=== PATIENT | male | born 1970 | race Caucasian/White ===

== ENCOUNTER 2017-03-20 14:12 | Outpatient (RCR) | payer SELFPAY ==
[~2017-03-20 14:12] MED LIST: ALBU8.5H4 IH; DOXY100C42 PO; METH4TAB PO
== END 2017-03-20 15:11 | disposition home or self-care (01) ==
PROVIDERS: ATTEND Nurse Practitioner Family
DX: M48.00 Spinal stenosis, site unspecified (principal); M54.5 Low back pain

== ENCOUNTER 2018-03-14 14:06 | Emergency (ER) | payer MEDICARE, OTHER ==
[~2018-03-14] VITALS: Ht 193 cm; Wt 208.7 kg
--- OUTSIDE RECORDS SUMMARY | 2018-03-14 14:12 | XMS REPORT ---
Author Author CK GORDON Organization [employer] Address Unknown Phone Unavailable Care Team Providers Care Residential Leasing Agent Name Role Phone CK GORDON CP Unavailable Allergies No Known Allergies Problems Problem Type Condition Code Onset Dates Condition Status Problem History of alcohol abuse Z87.898 Active Problem Tobacco abuse Z72.0 Active Problem Tobacco abuse counseling Z71.6 Active Problem Visit for wound care Z51.89 Active Problem Metabolic syndrome E88.81 Active Problem Encounter for wound re-check Z51.89 Active Problem Family history of cancer Z80.9 Active Problem Family history of diabetes mellitus Z83.3 Active Problem Hypercholesteremia E78.0 Active Problem Morbid obesity E66.01 Active Problem COPD (chronic obstructive pulmonary disease) J44.9 Active Problem Depression F32.9 Active Problem Exercise counseling Z71.89 Active Problem Hypertension I10 Active Problem Dietary counseling Z71.3 Active Medications No Known Medications Results No Known Results Summary Purpose [employer]ClinicalWorks Submission
--- OUTSIDE RECORDS SUMMARY | 2018-03-14 14:12 | XMS REPORT ---
Author Author AURA CORONA [facility] e[employer] Address Unknown Phone Unavailable Care Team Providers Care Rn Peritoneal Dialysis Name Role Phone AURA CORONA Unavailable Allergies No Known Allergies Problems Problem Type Condition Code Onset Dates Condition Status Problem Hypertension I10 Active Problem Shortness of breath R06.02 Active Problem COPD (chronic obstructive pulmonary disease) J44.9 Active Medications Medication Code System Code Instructions Start Date End Date Status Dosage Spiriva Respimat [facility] [address]-17 2.5 MCG/ACT Inhalation Once a day Sep 2 puffs Combivent Respimat [facility] [address]-43 20-100 MCG/ACT Inhalation PRN every 4 hours 1 puff Results No Known Results Summary Purpose eClinicalWorks Submission
--- OUTSIDE RECORDS SUMMARY | 2018-03-14 14:12 | XMS REPORT ---
Author Author CK GORDON Organization [facility] Address [address] [place] [address] Care Team Providers Care Land Commissioner Name Role Phone CK GORDON Unavailable PROBLEMS Type Condition ICD9-CM Code [id number] Code Onset Dates Condition Status SNOMED Code Problem Tobacco abuse counseling Z71.6 Active 346276299 Problem Family history of diabetes mellitus Z83.3 Active 397838244 Problem Tobacco abuse Z72.0 Active 36071131 Problem Encounter for wound re-check Z51.89 Active 993386097 Problem Visit for wound care Z51.89 Active 524087477 Problem Morbid obesity E66.01 Active 514915459 Problem Family history of cancer Z80.9 Active 841146328 Problem Metabolic syndrome E88.81 Active 70402777 Problem Hypercholesteremia E78.0 Active 48970336 Assessment Encounter for wound re-check Z51.89 05 Apr, 2016 Active 049913404 Problem Depression F32.9 Active 84355585 Problem Exercise counseling Z71.89 Active 351327961 Problem Hypertension I10 Active 34566121 Problem Dietary counseling Z71.3 Active 095158334 Problem COPD (chronic obstructive pulmonary disease) J44.9 Active 35674758 Problem History of alcohol abuse Z87.898 Active 455892844 ALLERGIES Substance Reaction Event Type Date Status N.K.D.A. Unknown Non Drug Allergy Apr, Unknown SOCIAL HISTORY No smoking Hx information available PLAN OF CARE VITAL SIGNS Height 76 in 2016-04-24 Weight 482.6 lbs 2016-04-24 Heart Rate 92 bpm 2016-04-24 Respiratory Rate 22 2016-04-24 BMI 58.74 kg/m2 2016-04-24 Blood pressure systolic 134 mmHg 2016-04-24 Blood pressure diastolic 84 mmHg 2016-04-24 MEDICATIONS Medication Instructions Dosage Frequency Start Date End Date Duration Status BuPROPion HCl (XL) 150 MG Orally Once a day 1 tablet in the morning 24h 30 Active ibuprofen 1 tab Active Tylenol 325 MG Orally every 6 hrs 3 tablets as needed 6h Active Symbicort 80-4.5 MCG/ACT Inhalation Twice a day 2 puffs 12h 25 Nov, 2015 Active Simvastatin 10 mg Orally Once a day 1 tablet in the evening 24h Dec, Active MetFORMIN HCl ER 500 MG Orally 2 times a day 1 tablet with evening meal for 1 week then one tab with meals twice daily 12h Dec, Active Lisinopril 40 mg Orally Once a day 1 tablet 24h Sep, Active Amlodipine Besylate 5 MG Orally Once a day 1 tablet 24h 30 Active Oxygen 2 L/NC Active ProAir HFA 108(90 Base) MCG/ACT INHALE TWO PUFFS BY MOUTH EVERY 4 HOURS NEEDED 17 Active Clindamycin HCl 300 MG Orally every 8 hrs 1 capsule 8h Apr,Apr 10 days Active RESULTS No Results PROCEDURES Procedure Date Ordered Related Diagnosis Body Site Office Visit, Est Pt., Level 2 April 24, 2016 IMMUNIZATIONS No Known Immunizations
--- OUTSIDE RECORDS SUMMARY | 2018-03-14 14:12 | XMS REPORT ---
Author Author AURA CORONA [facility] eClinicalWorks Address Unknown Phone Unavailable Care Team Providers Care Career Technical Supervisor Name Role Phone AURA CORONA CP Unavailable Allergies No Known Allergies Problems Problem Type Condition Code Onset Dates Condition Status Problem Routine adult health maintenance V70.0 Active Problem Elevated blood pressure reading without diagnosis of hypertension 796.2 Active Problem Shortness of breath R06.02 Active Problem Shortness of breath on exertion 786.05 Active Assessment Shortness of breath R06.02 Active Medications No Known Medications Procedures Procedure Coding System Code Date SPIROMETRY CPT-4 18812 Sep 14, 2015 NEB/MDI DEMO CPT-4 42515 Sep 14, 2015 RESPIRATORY FLOW VOLUME LOOP CPT-4 24649 Sep 14, 2015 SPRIOMETRY CHALLENGE CPT-4 95893 Sep 14, 2015 Results Name Result Date Reference Range Unit Abnormality Flag PULMONARY EDUCATION (IN-HOUSE) RESPIRATORY FLOW VOLUME LOOP (IN-HOUSE) BRONCHODILATION PRE/POST (IN-HOUSE) Summary Purpose eClinicalWorks Submission
--- OUTSIDE RECORDS SUMMARY | 2018-03-14 14:12 | XMS REPORT ---
Author Author HEIDIPRIYANKACK Organization [facility] Address [address] [place] [address] Care Team Providers Care Superintendent Meters Name Role Phone GORDONPRIYANKA AllenELE Unavailable PROBLEMS Type Condition ICD9-CM Code [id number] Code Onset Dates Condition Status SNOMED Code Problem Dietary counseling Z71.3 Active 625987520 Problem Tobacco abuse Z72.0 Active 74985130 Problem Morbid obesity E66.01 Active 472454841 Problem Back pain of lumbosacaral region with sciatica M54.40 Active 977677987 Problem Visit for wound care Z51.89 Active 404557757 Problem Metabolic syndrome E88.81 Active 42505273 Problem Tobacco abuse counseling Z71.6 Active 237630502 Problem Encounter for wound re-check Z51.89 Active 786181424 Problem Hypercholesteremia E78.0 Active 03147001 Problem Elevated TSH R94.6 Active 901975315 Problem Central stenosis of spinal canal M48.00 Active 84217438 Problem COPD (chronic obstructive pulmonary disease) J44.9 Active 61032351 Problem Depression F32.9 Active 06344872 Problem 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 Active 529394421446 Problem History of alcohol abuse Z87.898 Active 797794915 Problem Hypertension I10 Active 69638554 Problem Exercise counseling Z71.89 Active 473651418 ALLERGIES No Information SOCIAL HISTORY Never Assessed PLAN OF CARE VITAL SIGNS MEDICATIONS Medication Instructions Dosage Frequency Start Date End Date Duration Status Symbicort 80-4.5 MCG/ACT Inhalation Twice a day 2 puffs 12h 25 Nov, 2015 90 days Active RESULTS No Results PROCEDURES No Known procedures IMMUNIZATIONS No Known Immunizations MEDICAL (GENERAL) HISTORY Type Description Date Medical History alcoholism Medical History COPD Medical History Hypertension Medical History Depression Medical History 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
--- OUTSIDE RECORDS SUMMARY | 2018-03-14 14:12 | XMS REPORT ---
Author Author CK GORDON Organization [facility] Address [address] [place] [address] Care Team Providers Care Commercial Artist Lettering Name Role Phone CK GORDON Unavailable PROBLEMS Type Condition ICD9-CM Code [id number] Code Onset Dates Condition Status SNOMED Code Problem Dietary counseling Z71.3 Active 873979843 Problem Tobacco abuse Z72.0 Active 37309411 Problem Morbid obesity E66.01 Active 526663943 Problem Back pain of lumbosacaral region with sciatica M54.40 Active 209058770 Problem Visit for wound care Z51.89 Active 576941348 Problem Metabolic syndrome E88.81 Active 88829914 Problem Tobacco abuse counseling Z71.6 Active 715689826 Problem Encounter for wound re-check Z51.89 Active 954396582 Problem Hypercholesteremia E78.0 Active 67033238 Problem Elevated TSH R94.6 Active 406060591 Problem Central stenosis of spinal canal M48.00 Active 37841607 Problem COPD (chronic obstructive pulmonary disease) J44.9 Active 00959676 Problem Depression F32.9 Active 68754669 Problem 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 Active 917190248200 Problem History of alcohol abuse Z87.898 Active 008220463 Problem Hypertension I10 Active 13487350 Problem Exercise counseling Z71.89 Active 725515270 ALLERGIES No Information SOCIAL HISTORY Never Assessed PLAN OF CARE VITAL SIGNS MEDICATIONS Medication Instructions Dosage Frequency Start Date End Date Duration Status ProAir HFA 108(90 Base) MCG/ACT Inhalation every 4 hrs INHALE TWO PUFFS BY MOUTH EVERY 4 HOURS NEEDED 4h 90 days Active Spiriva Respimat 2.5 MCG/ACT Inhalation Once a day 2 puffs 24h Sep, 90 days Active RESULTS No Results PROCEDURES No Known procedures IMMUNIZATIONS No Known Immunizations MEDICAL (GENERAL) HISTORY Type Description Date Medical History alcoholism Medical History COPD Medical History Hypertension Medical History Depression Medical History 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
--- OUTSIDE RECORDS SUMMARY | 2018-03-14 14:12 | XMS REPORT ---
Author Author AURA CORONA [facility] eClinicalWorks Address Unknown Phone Unavailable Care Team Providers Care Caregivers Non Medical Name Role Phone AURA CORONA CP Unavailable Allergies, Adverse Reactions, Alerts Substance Reaction Event Type N.K.D.A. Info Not Available Non Drug Allergy Problems Problem Type Condition ICD-9 Code Onset Dates Condition Status Problem Shortness of breath on exertion 786.05 Active Assessment Elevated blood pressure reading without diagnosis of hypertension 796.2 Active Problem Elevated blood pressure reading without diagnosis of hypertension 796.2 Active Assessment Shortness of breath on exertion 786.05 Active Medications Medication Code System Code Instructions Start Date End Date Status Dosage Pulmicort Flexhaler [facility] 86699-2018-12 90 MCG/ACT Inhalation Twice a day Jun 10, 2015 1 puff ProAir HFA [facility] [address]-96 108 (90 Base) MCG/ACT Inhalation every 4 hrs Jun 02, 2015 2 puffs as needed Albuterol Sulfate [facility] [address]-31 108 (90 Base) MCG/ACT Inhalation every 4 hrs Jun 10, 2015 1 puff as needed Procedures Procedure Coding System Code Date Office Visit, New Pt., Level 4 CPT-4 89157 Jun 10, 2015 Vital Signs Date/Time: Jun 10, 2015 Temperature 98.7 F Weight 469.7 lbs Height 76 in BMI 57.17 Index Blood Pressure Diastolic 100 mmHg Blood Pressure Systolic 162 mmHg Cardiac Monitoring Heart Rate 90 bpm Results No Known Results Summary Purpose eClinicalWorks Submission
--- OUTSIDE RECORDS SUMMARY | 2018-03-14 14:12 | XMS REPORT ---
Author Author AURA CORONA [facility] eClinicalWorks Address Unknown Phone Unavailable Care Team Providers Care Hand Booked Folder And Stitcher Name Role Phone AURA CORONA CP Unavailable Allergies, Adverse Reactions, Alerts Substance Reaction Event Type N.K.D.A. Info Not Available Non Drug Allergy Problems Problem Type Condition Code Onset Dates Condition Status Problem COPD (chronic obstructive pulmonary disease) J44.9 Active Problem Hypertension I10 Active Problem Depression F32.9 Active Assessment COPD (chronic obstructive pulmonary disease) J44.9 Active Assessment Depression F32.9 Active Problem Shortness of breath R06.02 Active Assessment Hypertension I10 Active Medications Medication Code System Code Instructions Start Date End Date Status Dosage Spiriva Respimat [facility] [address]-59 2.5 MCG/ACT Inhalation Once a day Sep [address] [facility] [address]-10 40 MG Orally Once a day Oct 03, [address] [facility] [address]-96 80-4.5 MCG/ACT Inhalation Twice a day Jul 11, 2015 Oct 09, [address] [facility] [address]-11 10 MG Orally Once a day Oct 03, [address] [facility] [address]-27 20 MG Orally Once a day Oct 03, 2015 Oct 08, 2015 2 tabs Albuterol Sulfate [facility] [address]-48 108 (90 Base) MCG/ACT Inhalation every 4 hrs Jun 10, 2015 1 puff as needed Procedures Procedure Coding System Code Date Office Visit, Est Pt., Level 3 CPT-4 59794 Oct 03, 2015 Vital Signs Date/Time: Oct 03, 2015 Temperature 98.2 F Weight 488.4 lbs Height 76 in BMI 59.44 Index Blood Pressure Diastolic 100 mmHg Blood Pressure Systolic 162 mmHg Cardiac Monitoring Heart Rate 88 bpm Results No Known Results Summary Purpose eClinicalWorks Submission
--- OUTSIDE RECORDS SUMMARY | 2018-03-14 14:13 | XMS REPORT ---
Author Author KILEY NEWELL [facility] Address [address] [place] [address] Care Team Providers Care Investigative Reporter Name Role Phone KILEY NEWELL Unavailable PROBLEMS Type Condition ICD9-CM Code WOD25-AT Code Onset Dates Condition Status SNOMED Code Problem Tobacco abuse Z72.0 Active 91226935 Problem Family history of cancer Z80.9 Active 670135472 Problem Family history of diabetes mellitus Z83.3 Active 508956191 Problem Back pain of lumbosacaral region with sciatica M54.40 Active 977351238 Problem Encounter for wound re-check Z51.89 Active 442891454 Problem Hypercholesteremia E78.0 Active 57609697 Problem Morbid obesity E66.01 Active 589737594 Problem Visit for wound care Z51.89 Active 026548125 Problem Metabolic syndrome E88.81 Active 45090420 Assessment Impingement syndrome, shoulder, left M75.42 22 Jun, 2016 Active 154938478 Problem Hypertension I10 Active 88205773 Problem Exercise counseling Z71.89 Active 590412980 Problem Dietary counseling Z71.3 Active 630042393 Problem COPD (chronic obstructive pulmonary disease) J44.9 Active 74883504 Problem History of alcohol abuse Z87.898 Active 082848512 Problem Depression F32.9 Active 40757664 Problem Tobacco abuse counseling Z71.6 Active 592627604 ALLERGIES Unknown Allergies SOCIAL HISTORY No smoking Hx information available PLAN OF CARE VITAL SIGNS Height 76 in 2016-07-12 Blood pressure systolic 130 mmHg 2016-07-12 Blood pressure diastolic 60 mmHg 2016-07-12 MEDICATIONS Unknown Medications RESULTS No Results PROCEDURES Procedure Date Ordered Related Diagnosis Body Site DRAIN/INJECT, JOINT/BURSA Jul 12, 2016 Office Visit, Est Pt., Level 3 Jul 12, 2016 DEPO MEDROL 80 MG/ML Jul 12, 2016 IMMUNIZATIONS No Known Immunizations
--- OUTSIDE RECORDS SUMMARY | 2018-03-14 14:13 | XMS REPORT ---
Author Author CK GORDON [facility] eClinicalWorks Address Unknown Phone Unavailable Care Team Providers Care Relationship Executive Name Role Phone CK GORDON CP Unavailable Allergies, Adverse Reactions, Alerts Substance Reaction Event Type N.K.D.A. Info Not Available Non Drug Allergy Problems Problem Type Condition Code Onset Dates Condition Status Problem Tobacco abuse counseling Z71.6 Active Problem Family history of diabetes mellitus Z83.3 Active Problem Tobacco abuse Z72.0 Active Problem Encounter for wound re-check Z51.89 Active Problem Visit for wound care Z51.89 Active Problem Back pain of lumbosacaral region with sciatica M54.40 Active Problem Morbid obesity E66.01 Active Problem Family history of cancer Z80.9 Active Problem Metabolic syndrome E88.81 Active Problem Hypercholesteremia E78.0 Active Assessment Back pain of lumbosacaral region with sciatica M54.40 Active Assessment Morbid obesity E66.01 Active Problem Depression F32.9 Active Problem Exercise counseling Z71.89 Active Problem Hypertension I10 Active Problem Dietary counseling Z71.3 Active Problem COPD (chronic obstructive pulmonary disease) J44.9 Active Problem History of alcohol abuse Z87.898 Active Medications Medication Code System Code Instructions Start Date End Date Status Dosage ibuprofen [facility] [address]-05 Oral 1 tab Tylenol [facility] [address]-85 325 MG Orally every 6 hrs 3 tablets as needed Lisinopril [facility] [address]-16 40 mg Orally Once a day Oct 03, 2015 1 tablet ProAir HFA [facility] [id number] 108(90 Base) MCG/ACT INHALE TWO PUFFS BY MOUTH EVERY 4 HOURS NEEDED Simvastatin [facility] [address]-09 10 mg Orally Once a day December 26, 2015 1 tablet in the evening Oxygen NDC 0 2 L/NC not defined Amlodipine Besylate [facility] [address]-91 5 mg Orally Once a day 1 tablet BuPROPion HCl (XL) [facility] [id number] 150 MG Orally Once a day 1 tablet in the morning Symbicort [facility] [address]-64 80-4.5 MCG/ACT Inhalation Twice a day Dec 15, 2015 2 puffs MetFORMIN HCl ER [facility] [address]-88 500 MG Orally 2 times a day December 26, 2015 1 tablet with evening meal for 1 week then one tab with meals twice daily Procedures Procedure Coding System Code Date Office Visit, Est Pt., Level 3 CPT-4 15289 Aug 30, 2016 Vital Signs Date/Time: Aug 30, 2016 Cardiac Monitoring Heart Rate 98 bpm Weight 469.0 lbs Height 76 in BMI 57.08 Index Blood Pressure Diastolic 74 mmHg Blood Pressure Systolic 144 mmHg Results No Known Results Summary Purpose eClinicalWorks Submission
--- OUTSIDE RECORDS SUMMARY | 2018-03-14 14:13 | XMS REPORT ---
Author Author HEIDI CK Organization [facility] Address [address] [place] [address] Care Team Providers Care Factory Helper Name Role Phone GORDONPRIYANKA AllenELE Unavailable PROBLEMS Type Condition ICD9-CM Code PRM49-MI Code Onset Dates Condition Status SNOMED Code Problem Depression F32.9 Active 06110863 Problem Dietary counseling Z71.3 Active 962281100 Problem Exercise counseling Z71.89 Active 143791963 Problem Back pain of lumbosacaral region with sciatica M54.40 Active 776947867 Problem Hypercholesteremia E78.0 Active 89002049 Problem Tobacco abuse Z72.0 Active 61952891 Problem Morbid obesity E66.01 Active 643698871 Problem Metabolic syndrome E88.81 Active 26903279 Problem Tobacco abuse counseling Z71.6 Active 044537094 Problem Central stenosis of spinal canal M48.00 Active 54390291 Problem Chronic kidney disease (CKD) stage G3a/A1, moderately decreased glomerular filtration rate (GFR) between 45-59 mL/min/1.73 square meter and albuminuria creatinine ratio less than 30 mg/g N18.3 Active 381585006 Problem 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 Active 666384549908 Problem Abnormal CBC R79.89 Active 626368063 Problem Hypertension I10 Active 04477899 Problem Elevated TSH R94.6 Active 422136798 Problem COPD (chronic obstructive pulmonary disease) J44.9 Active 13988237 ALLERGIES No Known Allergies ENCOUNTERS Encounter Location Date Diagnosis [facility] [address] [facility] [id number] [address] February, [facility] [address] [id number] [address] Dec, Acute nasopharyngitis J00 ; BMI 50.0-59.9, adult Z68.43 and Sore throat J02.9 [facility] [id number] [place] [address] Nov, COPD (chronic obstructive pulmonary disease) J44.9 [place] [address] [address] Nov, Abnormal complete blood count R79.89 [place] [address] [address] Oct, COPD (chronic obstructive pulmonary disease) J44.9 ; Hypertension I10 ; Hypercholesteremia E78.0 and Tobacco abuse counseling Z71.6 [place] [address] [address] Oct, COPD (chronic obstructive pulmonary disease) J44.9 ; Hypertension I10 ; Morbid obesity E66.01 ; Metabolic syndrome E88.81 ; Hypercholesteremia E78.0 ; Central stenosis of spinal canal M48.00 ; 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 ; Tobacco abuse Z72.0 ; Tobacco abuse counseling Z71.6 ; Depression F32.9 ; Dietary counseling Z71.3 ; Exercise counseling Z71.89 and Encounter for immunization Z23 [place] [address] [address] Oct, COPD (chronic obstructive pulmonary disease) J44.9 [place] [address] [address] Jul, Hypertension I10 ; 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 ; COPD (chronic obstructive pulmonary disease) J44.9 ; Elevated serum creatinine R79.89 ; Acute serous otitis media of left ear, recurrence not specified H65.02 ; Acute otitis externa of left ear, unspecified type H60.502 and Dizziness R42 [place] [address] [address] May, Back pain of lumbosacaral region with sciatica M54.40 ; Central stenosis of spinal canal M48.00 and Morbid obesity E66.01 [place] [address] [address] Mar, Hypertension I10 [place] [id number] [place] [address] Mar, Metabolic syndrome E88.81 ; Hypertension I10 ; COPD ( chronic obstructive pulmonary disease) J44.9 ; Morbid obesity E66.01 ; Depression F32.9 ; Dietary counseling Z71.3 ; Exercise counseling Z71.89 ; Tobacco abuse Z72.0 ; Tobacco abuse counseling Z71.6 ; Hypercholesteremia E78.0 and Central stenosis of spinal canal M48.00 [place] [address] [address] February, [place] [address] [address] Jan, Abnormal thyroid stimulating hormone (TSH) level R79.89 [place] [address] [address] Dec, Morbid obesity E66.01 ; Metabolic syndrome E88.81 ; COPD ( chronic obstructive pulmonary disease) J44.9 ; Hypercholesteremia E78.0 ; Back pain of lumbosacaral region with sciatica M54.40 and Hypertension I10 [place] [id number] [place] [address] Dec, Spinal stenosis, site unspecified M48.00 [place] [id number] [place] [address] Dec, Hypertension I10 ; Metabolic syndrome E88.81 and Hypercholesteremia E78.0 [place] [id number] [place] [address] Dec, Hypertension I10 ; Metabolic syndrome E88.81 and Hypercholesteremia E78.0 [place] [address] [address] Dec, Back pain of lumbosacaral region with sciatica M54.40 [place] [address] [address] Nov, COPD (chronic obstructive pulmonary disease) J44.9 [facility] [id number] [place] [address] Nov, [facility] [address] [address] Nov, COPD (chronic obstructive pulmonary disease) J44.9 [facility] [address] [address] Nov, Hypertension I10 ; COPD (chronic obstructive pulmonary disease) J44.9 ; Depression F32.9 ; Morbid obesity E66.01 ; Metabolic syndrome E88.81 and Hypercholesteremia E78.0 [place] [address] [address] Nov, Impingement syndrome, shoulder, left M75.42 [place] [address] [address] Aug, Back pain of lumbosacaral region with sciatica M54.40 [place] [address] [address] Aug, Impingement syndrome, shoulder, left M75.42 [place] [id number] [place] [address] Aug, Morbid obesity E66.01 and Back pain of lumbosacaral region with sciatica M54.40 [place] [id number] [place] [address] Jun, Impingement syndrome, shoulder, left M75.42 [place] [id number] [place] [address] May, [place] [address] [address] May, [place] [id number] [place] [address] May, Impingement syndrome, shoulder, left M75.42 [place] [id number] [place] [address] Apr, Morbid obesity E66.01 ; Back pain of lumbosacaral region with sciatica M54.40 and On home oxygen therapy Z99.81 [place] [address] [address] Apr, [place] [address] [address] Apr, Encounter for wound re-check Z51.89 and Visit for wound care Z51.89 [facility] [address] [address] Apr, Dressing change or removal, nonsurgical wound Z48.00 [place] [address] [address] Apr, Abscess L02.91 and Acute left-sided low back pain with left- sided sciatica M54.42 [place] [address] [address] Mar, Morbid obesity E66.01 and Acute pain of left shoulder M25.512 [place] [address] [address] February, Acute pain of left shoulder M25.512 [place] [address] [address] Jan, Depression F32.9 ; Morbid obesity E66.01 ; Metabolic syndrome E88.81 and Hypercholesteremia E78.0 [place] [address] [address] Dec, Hypertension I10 ; Morbid obesity E66.01 ; Family history of diabetes mellitus Z83.3 ; History of alcohol abuse Z87.898 and Tobacco abuse Z72.0 [place] [address] [address] Dec, [facility] [id number] [place] [address] Dec, Morbid obesity E66.01 ; Hypertension I10 ; Family history of cancer Z80.9 and Family history of diabetes mellitus Z83.3 [place] [id number] [place] [address] Nov, Morbid obesity E66.01 ; COPD (chronic obstructive pulmonary disease) J44.9 ; Hypertension I10 ; Depression F32.9 ; Family history of cancer Z80.9 ; Family history of diabetes mellitus Z83.3 ; Tobacco abuse Z72.0 ; Tobacco abuse counseling Z71.6 ; History of alcohol abuse Z87.898 ; Dietary counseling Z71.3 and Exercise counseling Z71.89 [place] [id number] [place] [address] Sep, Hypertension I10 ; COPD (chronic obstructive pulmonary disease) J44.9 and Depression F32.9 [place] [id number] [place] [address] Sep, [place] [address] [address] Sep, COPD (chronic obstructive pulmonary disease) J44.9 and Hypertension I10 [place] [id number] [place] [address] Aug, Shortness of breath R06.02 [place] [id number] [place] [address] Aug, [place] [id number] [place] [address] Aug, [place] [id number] [place] [address] Jul, [place] [id number] [place] [address] Jul, [place] [address] [address] Jun, Routine adult health maintenance V70.0 and Shortness of breath on exertion 786.05 [facility] [address] [facility] [id number] [address] May, Elevated blood pressure reading without diagnosis of hypertension 796.2 and Shortness of breath on exertion 786.05 IMMUNIZATIONS No Known Immunizations SOCIAL HISTORY Never Assessed REASON FOR VISIT increasing left leg numbness x1 week ago saturday and is numb all the time, pt. states getting ready for bed . drank some milk and took his meds. went to sit down and had a sharp pain that shot straight through his abdomen. , pt. states the abdominal pain is the worst when he reaches for something or tries to sit, pt. states has not had a good bowel movement in a week----LILIANA Giraldo PLAN OF CARE Activity Details Follow Up 3 Months, prn Reason: VITAL SIGNS Height 76 in 2017-05-21 Weight 475.6 lbs 2017-05-21 Temperature 97.8 degrees Fahrenheit 2017-05-21 Heart Rate 90 bpm 2017-05-21 Respiratory Rate 22 2017-05-21 BMI 57.89 kg/m2 2017-05-21 Blood pressure systolic 148 mmHg 2017-05-21 Blood pressure diastolic 85 mmHg 2017-05-21 MEDICATIONS Medication Instructions Dosage Frequency Start Date End Date Duration Status ProAir HFA 108(90 Base) MCG/ACT Inhalation every 4 hrs INHALE TWO PUFFS BY MOUTH EVERY 4 HOURS NEEDED 4h Active Lisinopril 40 mg Orally Once a day 1 tablet 24h 30 days Active Oxygen 2 L/NC Active Spiriva Respimat 2.5 MCG/ACT Inhalation Once a day 2 puffs 24h Sep, Active Symbicort 80-4.5 MCG/ACT Inhalation Twice a day 2 puffs 12h Nov, Active Tylenol 325 MG Orally every 6 hrs 3 tablets as needed 6h Active Amlodipine Besylate 5 mg Orally Once a day 1 tablet 24h 30 days Active Singulair 10 mg Orally Once a day 1 tablet in the evening 24h Mar, 90 days Active BuPROPion HCl ER (XL) 150 MG Orally Once a day TAKE ONE TABLET BY MOUTH IN THE MORNING 24h 90 days Active Simvastatin 20 mg Orally Once a day 1 tablet in the evening 24h Nov, 90 days Active ibuprofen 1 tab Active Albuterol Sulfate (2.5 MG/3ML) 0.083% Inhalation 2 times a day 3 ml 12h Active MetFORMIN HCl ER 500 mg Orally 2 times a day 1 tablet with evening meal for 1 week then one tab with meals twice daily 12h Dec, 90 days Active Simvastatin 10 MG TAKE ONE TABLET BY MOUTH IN THE EVENING Active RESULTS No Results PROCEDURES No Known procedures INSTRUCTIONS MEDICATIONS ADMINISTERED No Known Medications MEDICAL (GENERAL) HISTORY Type Description Date Medical History alcoholism Medical History COPD Medical History Hypertension Medical History Depression Medical History 1.47 cm left posterior basal lung mass- Medical History History of alcohol abuse Surgical History gastric bypass 2000 Surgical History abdominal hernia repair Hospitalization History past surgery
--- OUTSIDE RECORDS SUMMARY | 2018-03-14 14:13 | XMS REPORT ---
Author Author AURA CORONA [facility] eClinicalWorks Address Unknown Phone Unavailable Care Team Providers Care Naval Science Teacher Name Role Phone AURA CORONA CP Unavailable Allergies No Known Allergies Problems Problem Type Condition Code Onset Dates Condition Status Problem Elevated blood pressure reading without diagnosis of hypertension 796.2 Active Problem Shortness of breath on exertion 786.05 Active Problem Routine adult health maintenance V70.0 Active Medications No Known Medications Results No Known Results Summary Purpose eClinicalWorks Submission
--- OUTSIDE RECORDS SUMMARY | 2018-03-14 14:13 | XMS REPORT ---
Author Author AURA CORONA [facility] eClinicalWorks Address Unknown Phone Unavailable Care Team Providers Care Finance Admin Name Role Phone AURA CORONA CP Unavailable Allergies, Adverse Reactions, Alerts Substance Reaction Event Type N.K.D.A. Info Not Available Non Drug Allergy Problems Problem Type Condition Code Onset Dates Condition Status Problem Hypertension I10 Active Problem Shortness of breath R06.02 Active Problem COPD (chronic obstructive pulmonary disease) J44.9 Active Assessment COPD (chronic obstructive pulmonary disease) J44.9 Active Assessment Hypertension I10 Active Medications Medication Code System Code Instructions Start Date End Date Status Dosage Albuterol Sulfate [facility] [id number] 108 (90 Base) MCG/ACT Inhalation every 4 hrs Jun 10, 2015 1 puff as needed Symbicort [facility] [id number] 80-4.5 MCG/ACT Inhalation Twice a day Jul 11, 2015 Oct 09, 2015 2 puffs Spiriva Respimat [facility] [id number] 2.5 MCG/ACT Inhalation Once a day Sep [address] [facility] [id number] 20 MG Orally Once a day Sep 22, 2015 1 tablet Procedures Procedure Coding System Code Date Office Visit, Est Pt., Level 3 CPT-4 68094 Sep 22, 2015 Vital Signs Date/Time: Sep 22, 2015 Temperature 98.6 F Weight 487.1 lbs Height 76 in BMI 59.29 Index Blood Pressure Diastolic 103 mmHg Blood Pressure Systolic 191 mmHg Cardiac Monitoring Heart Rate 89 bpm Results No Known Results Summary Purpose eClinicalWorks Submission
--- OUTSIDE RECORDS SUMMARY | 2018-03-14 14:13 | XMS REPORT ---
Author Author CK GORDON Organization [facility] Address [address] [place] [address] Care Team Providers Care Radioactivity Technician Name Role Phone CK GORDON Unavailable PROBLEMS Type Condition ICD9-CM Code [id number] Code Onset Dates Condition Status SNOMED Code Problem Dietary counseling Z71.3 Active 801702818 Problem Tobacco abuse Z72.0 Active 29912842 Problem Morbid obesity E66.01 Active 325078042 Problem Back pain of lumbosacaral region with sciatica M54.40 Active 980905612 Problem Visit for wound care Z51.89 Active 543612271 Problem Metabolic syndrome E88.81 Active 71084122 Problem Tobacco abuse counseling Z71.6 Active 610708298 Problem Encounter for wound re-check Z51.89 Active 808392140 Problem Hypercholesteremia E78.0 Active 90302348 Problem Elevated TSH R94.6 Active 076132581 Problem Central stenosis of spinal canal M48.00 Active 75736139 Problem COPD (chronic obstructive pulmonary disease) J44.9 Active 30364536 Problem Depression F32.9 Active 00994889 Problem 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 Active 202215714943 Problem History of alcohol abuse Z87.898 Active 306538388 Problem Hypertension I10 Active 89016265 Problem Exercise counseling Z71.89 Active 623577419 ALLERGIES No Information SOCIAL HISTORY Never Assessed PLAN OF CARE VITAL SIGNS MEDICATIONS No Known Medications RESULTS No Results PROCEDURES No Known procedures IMMUNIZATIONS No Known Immunizations MEDICAL (GENERAL) HISTORY Type Description Date Medical History alcoholism Medical History COPD Medical History Hypertension Medical History Depression Medical History 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
--- OUTSIDE RECORDS SUMMARY | 2018-03-14 14:13 | XMS REPORT ---
Author Author CK GORDON Organization [facility] Address [address] [place] [address] Care Team Providers Care Punch Machine Operator Name Role Phone CK GORDON Unavailable PROBLEMS Type Condition ICD9-CM Code [id number] Code Onset Dates Condition Status SNOMED Code Problem Dietary counseling Z71.3 Active 508950969 Problem Tobacco abuse Z72.0 Active 86950270 Problem Morbid obesity E66.01 Active 287143759 Problem Back pain of lumbosacaral region with sciatica M54.40 Active 646496951 Problem Visit for wound care Z51.89 Active 741447181 Problem Metabolic syndrome E88.81 Active 38891340 Problem Tobacco abuse counseling Z71.6 Active 821774760 Problem Encounter for wound re-check Z51.89 Active 549625992 Problem Hypercholesteremia E78.0 Active 83026338 Problem Elevated TSH R94.6 Active 302215390 Problem Central stenosis of spinal canal M48.00 Active 60356857 Problem COPD (chronic obstructive pulmonary disease) J44.9 Active 27006776 Problem Depression F32.9 Active 62231699 Problem 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 Active 631906769341 Problem History of alcohol abuse Z87.898 Active 096579536 Problem Hypertension I10 Active 10525719 Problem Exercise counseling Z71.89 Active 577783239 ALLERGIES No Known Allergies SOCIAL HISTORY Never Assessed PLAN OF CARE Activity Details Follow Up 4 Weeks Reason:weight management VITAL SIGNS Height 76 in 2016-12-11 Weight 468.4 lbs 2016-12-11 Temperature 98.1 degrees Fahrenheit 2016-12-11 Heart Rate 92 bpm 2016-12-11 Respiratory Rate 24 2016-12-11 BMI 57.01 kg/m2 2016-12-11 Blood pressure systolic 146 mmHg 2016-12-11 Blood pressure diastolic 82 mmHg 2016-12-11 MEDICATIONS Medication Instructions Dosage Frequency Start Date End Date Duration Status Tylenol 325 MG Orally every 6 hrs 3 tablets as needed 6h Active Contrave 8-90 MG Orally Twice a day 1 tab each pm x 1 wk, then 1 tab each am and pm x 1 wk, then 2 tabs in pm and 1 tab in am x 1 wk, then 2 tabs bid 12h Nov, Dec, 30 day(s) Active ibuprofen 1 tab Active BuPROPion HCl (XL) 150 MG Orally Once a day TAKE ONE TABLET BY MOUTH IN THE MORNING 24h 6 Months Active Symbicort 80-4.5 MCG/ACT Inhalation Twice a day 2 puffs 12h Nov, Active Albuterol Sulfate (2.5 MG/3ML) 0.083% Inhalation 2 times a day 3 ml 12h Active ProAir HFA 108(90 Base) MCG/ACT INHALE TWO PUFFS BY MOUTH EVERY 4 HOURS NEEDED 17 Active Simvastatin 20 mg Orally Once a day 1 tablet in the evening 24h Nov, 90 days Active Lisinopril 40 mg Orally Once a day 1 tablet 24h 90 days Active Simvastatin 10 MG TAKE ONE TABLET BY MOUTH IN THE EVENING 30 Active Amlodipine Besylate 5 MG Orally Once a day 1 tablet 24h 90 days Active Oxygen 2 L/NC Active MetFORMIN HCl ER 500 MG Orally 2 times a day 1 tablet with evening meal for 1 week then one tab with meals twice daily 12h Dec, 90 days Active Spiriva Respimat 2.5 MCG/ACT Inhalation Once a day 2 puffs 24h Sep, Active RESULTS No Results PROCEDURES No Known procedures IMMUNIZATIONS No Known Immunizations MEDICAL (GENERAL) HISTORY Type Description Date Medical History alcoholism Medical History COPD Medical History Hypertension Medical History Depression Medical History 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
--- OUTSIDE RECORDS SUMMARY | 2018-03-14 14:13 | XMS REPORT ---
Author Author AURA CORONA [facility] eClinicalWorks Address Unknown Phone Unavailable Care Team Providers Care Psychiatric Cns Name Role Phone AURA CORONA CP Unavailable [...]
--- OUTSIDE RECORDS SUMMARY | 2018-03-14 14:13 | XMS REPORT ---
Author Author KILEY NEWELL [facility] Address [address] [place] [address] Care Team Providers Care Helper Maintenance Cleaning Name Role Phone KILEY NEWELL Unavailable PROBLEMS Type Condition ICD9-CM Code [id number] Code Onset Dates Condition Status SNOMED Code Problem Dietary counseling Z71.3 Active 975401806 Problem Tobacco abuse Z72.0 Active 63808191 Problem Morbid obesity E66.01 Active 476325962 Problem Back pain of lumbosacaral region with sciatica M54.40 Active 751981997 Problem Visit for wound care Z51.89 Active 284314515 Problem Metabolic syndrome E88.81 Active 51072947 Problem Tobacco abuse counseling Z71.6 Active 095191848 Problem Encounter for wound re-check Z51.89 Active 267370408 Problem Hypercholesteremia E78.0 Active 50956367 Problem Elevated TSH R94.6 Active 886181686 Problem Central stenosis of spinal canal M48.00 Active 79219460 Problem COPD (chronic obstructive pulmonary disease) J44.9 Active 86629598 Problem Depression F32.9 Active 40460342 Problem 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 Active 755423610395 Problem History of alcohol abuse Z87.898 Active 378454338 Problem Hypertension I10 Active 28500428 Problem Exercise counseling Z71.89 Active 738415891 ALLERGIES No Information SOCIAL HISTORY Never Assessed PLAN OF CARE Activity Details Follow Up prn Reason: VITAL SIGNS Height 76 in 2016-12-06 Blood pressure systolic 162 mmHg 2016-12-06 Blood pressure diastolic 92 mmHg 2016-12-06 MEDICATIONS No Known Medications RESULTS No Results PROCEDURES Procedure Date Ordered Result Body Site DRAIN/INJECT, JOINT/BURSA Dec 06, 2016 DEPO MEDROL 80 MG/ML Dec 06, 2016 IMMUNIZATIONS No Known Immunizations MEDICAL (GENERAL) HISTORY Type Description Date Medical History alcoholism Medical History COPD Medical History Hypertension Medical History Depression Medical History 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
--- OUTSIDE RECORDS SUMMARY | 2018-03-14 14:14 | XMS REPORT ---
Author Author CK GORDON Organization [facility] Address [address] [place] [address] Care Team Providers Care Hearing Aid Repair Technician Name Role Phone HEIDI CK Unavailable PROBLEMS Type Condition ICD9-CM Code [id number] Code Onset Dates Condition Status SNOMED Code Problem Morbid obesity E66.01 Active 990490625 Problem Tobacco abuse counseling Z71.6 Active 888992821 Problem Tobacco abuse Z72.0 Active 54773150 Problem 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 Active 47471512 Problem Back pain of lumbosacaral region with sciatica M54.40 Active 572225378 Problem Hypercholesteremia E78.0 Active 72852190 Problem Metabolic syndrome E88.81 Active 32146488 Problem Visit for wound care Z51.89 Active 971802076 Problem Encounter for wound re-check Z51.89 Active 540689785 Problem Central stenosis of spinal canal M48.00 Active 82819017 Problem 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 Active 868014926567 Problem Elevated TSH R94.6 Active 168937711 Problem Depression F32.9 Active 55573177 Problem History of alcohol abuse Z87.898 Active 689385838 Problem Hypertension I10 Active 89856759 Problem Exercise counseling Z71.89 Active 880968305 Problem COPD (chronic obstructive pulmonary disease) J44.9 Active 33761218 Problem Dietary counseling Z71.3 Active 236964922 ALLERGIES No Information SOCIAL HISTORY Never Assessed [...]
--- OUTSIDE RECORDS SUMMARY | 2018-03-14 14:14 | XMS REPORT ---
Author Author CK GORDON [facility] eClinicalWorks Address Unknown Phone Unavailable Care Team Providers Care Window Tinter Name Role Phone CK GORDON CP Unavailable Allergies, Adverse Reactions, Alerts Substance Reaction Event Type N.K.D.A. Info Not Available Non Drug Allergy Problems Problem Type Condition Code Onset Dates Condition Status Problem Exercise counseling Z71.89 Active Problem History of alcohol abuse Z87.898 Active Problem Dietary counseling Z71.3 Active Problem Hypercholesteremia E78.0 Active Problem Morbid obesity E66.01 Active Problem Metabolic syndrome E88.81 Active Problem Tobacco abuse Z72.0 Active Problem Tobacco abuse counseling Z71.6 Active Problem Family history of cancer Z80.9 Active Problem Family history of diabetes mellitus Z83.3 Active Assessment Hypercholesteremia E78.0 Active Assessment Depression F32.9 Active Problem Hypertension I10 Active Assessment Metabolic syndrome E88.81 Active Problem COPD (chronic obstructive pulmonary disease) J44.9 Active Assessment Morbid obesity E66.01 Active Problem Depression F32.9 Active Medications Medication Code System Code Instructions Start Date End Date Status Dosage Simvastatin [facility] [place] 2] [address]-51 10 mg Orally Once a day December 26, 2015 1 tablet in the evening Symbicort [facility] [place]NOTE 2] [address]-33 80-4.5 MCG/ACT Inhalation Twice a day Dec 15, 2015 2 puffs ProAir HFA [facility] [place]NOTE 2] 98469953420 108(90 Base) MCG/ACT INHALE TWO PUFFS BY MOUTH EVERY 4 HOURS NEEDED Amlodipine Besylate [facility] [place]NOTE 2] [address]-61 5 MG Orally Once a day January 13, 2016 1 tablet BuPROPion HCl (XL) [facility] [place]NOTE 2] [address]-85 150 MG Orally Once a day January 13, 2016 1 tablet in the morning Lisinopril [facility] [place]NOTE 2] [address]-09 40 MG Orally Once a day Oct 03, 2015 1 tablet MetFORMIN HCl ER [facility] [place]NOTE 2] [address]-04 500 MG Orally 2 times a day December 26, 2015 1 tablet with evening meal for 1 week then one tab with meals twice daily Procedures Procedure Coding System Code Date Office Visit, Est Pt., Level 3 CPT-4 72482 February 03, 2016 Vital Signs Date/Time: February 03, 2016 Temperature 98.0 F Weight 474.0 lbs Height 76 in BMI 57.69 Index Blood Pressure Diastolic 90 mmHg Blood Pressure Systolic 138 mmHg Results No Known Results Summary Purpose eClinicalWorks Submission
--- OUTSIDE RECORDS SUMMARY | 2018-03-14 14:14 | XMS REPORT ---
Author Author CK GORDON Organization eClinicalWorks Address Unknown Phone Unavailable Care Team Providers Care Rivet Bucker Name Role Phone CK GORDON CP Unavailable [...] syndrome E88.81 Active Problem Hypercholesteremia E78.0 Active Problem Depression F32.9 Active Problem Exercise counseling Z71.89 Active Problem Hypertension I10 Active Problem Dietary counseling Z71.3 Active Problem COPD (chronic obstructive pulmonary disease) J44.9 Active Problem History of alcohol abuse Z87.898 Active Medications Medication Code System Code Instructions Start Date End Date Status Dosage Lisinopril [facility] [address]-68 40 mg Orally Once a day Oct 03, 2015 1 tablet Amlodipine Besylate [facility] [address]-69 5 mg Orally Once a day 1 tablet Results No Known Results Summary Purpose eClinicalWorks Submission
--- OUTSIDE RECORDS SUMMARY | 2018-03-14 14:14 | XMS REPORT ---
Author Author CK GORDON [facility] eClinicalWorks Address Unknown Phone Unavailable Care Team Providers Care Sonographer Name Role Phone CK GORDON CP Unavailable [...] M54.40 Active Assessment Morbid obesity E66.01 Active Assessment On home oxygen therapy Z99.81 Active Problem Depression F32.9 Active Problem Exercise counseling Z71.89 Active Problem Hypertension I10 Active Problem Dietary counseling Z71.3 Active Problem COPD (chronic obstructive pulmonary disease) J44.9 Active Problem History of alcohol abuse Z87.898 Active Medications Medication Code System Code Instructions Start Date End Date Status Dosage Lisinopril [facility] [address]-43 40 mg Orally Once a day Oct 03, 2015 1 tablet Amlodipine Besylate [facility] 57706677590 5 MG Orally Once a day 1 tablet ibuprofen [facility] [address]-80 Oral 1 tab BuPROPion HCl (XL) [facility] 22948450414 150 MG Orally Once a day 1 tablet in the morning ProAir HFA [facility] 18040163201 108(90 Base) MCG/ACT INHALE TWO PUFFS BY MOUTH EVERY 4 HOURS NEEDED Simvastatin [facility] [address]-01 10 mg Orally Once a day December 26, 2015 1 tablet in the evening Oxygen ND 0 2 L/NC not defined Tylenol [facility] [address]-56 325 MG Orally every 6 hrs 3 tablets as needed Symbicort [facility] [address]-52 80-4.5 MCG/ACT Inhalation Twice a day Dec 15, 2015 2 puffs MetFORMIN HCl ER [facility] [address]-50 500 MG Orally 2 times a day December 26, 2015 1 tablet with evening meal for 1 week then one tab with meals twice daily Procedures Procedure Coding System Code Date Office Visit, Est Pt., Level 3 CPT-4 44979 May 11, 2016 MEASURE BLOOD OXYGEN LEVEL CPT-4 04612 May 11, 2016 Vital Signs Date/Time: May 11, 2016 Cardiac Monitoring Heart Rate 99 bpm Weight 478.0 lbs Height 76 in Blood Pressure Diastolic 60 mmHg Blood Pressure Systolic 127 mmHg Results No Known Results Summary Purpose eClinicalWorks Submission
--- OUTSIDE RECORDS SUMMARY | 2018-03-14 14:14 | XMS REPORT ---
Author Author AURA CORONA [facility] eClinicalWorks Address Unknown Phone Unavailable Care Team Providers Care Audiology Assistant Name Role Phone AURA CORONA CP Unavailable [...]
--- OUTSIDE RECORDS SUMMARY | 2018-03-14 14:14 | XMS REPORT ---
Author Author AURA CORONA [facility] eClinicalWorks Address Unknown Phone Unavailable Care Team Providers Care Mass Spectroscopist Name Role Phone AURA CORONA CP Unavailable [...]
--- OUTSIDE RECORDS SUMMARY | 2018-03-14 14:14 | XMS REPORT ---
Author Author CHARLES HAYDEN [facility] Address [address] [place] [address] Care Team Providers Care Armored Car Driver Name Role Phone CHARLES HAYDEN Unavailable PROBLEMS Type Condition ICD9-CM Code [id number] Code Onset Dates Condition Status SNOMED Code Problem Tobacco abuse Z72.0 Active 03509746 Problem Family history of cancer Z80.9 Active 224907559 Problem Family history of diabetes mellitus Z83.3 Active 151833887 Problem Back pain of lumbosacaral region with sciatica M54.40 Active 118770115 Problem Encounter for wound re-check Z51.89 Active 840623274 Problem Hypercholesteremia E78.0 Active 28681456 Problem Morbid obesity E66.01 Active 095511542 Problem Visit for wound care Z51.89 Active 526429666 Problem Metabolic syndrome E88.81 Active 21146928 Assessment Back pain of lumbosacaral region with sciatica M54.40 28 Aug, 2016 Active 11290056 Problem Hypertension I10 Active 77119412 Problem Exercise counseling Z71.89 Active 732799865 Problem Dietary counseling Z71.3 Active 236763113 Problem COPD (chronic obstructive pulmonary disease) J44.9 Active 69895984 Problem History of alcohol abuse Z87.898 Active 427429574 Problem Depression F32.9 Active 09612202 Problem Tobacco abuse counseling Z71.6 Active 212142765 ALLERGIES Unknown Allergies SOCIAL HISTORY No smoking Hx information available PLAN OF CARE VITAL SIGNS MEDICATIONS Unknown Medications RESULTS No Results PROCEDURES Procedure Date Ordered Related Diagnosis Body Site PT EVALUATION Sep 17, 2016 THERAPEUTIC EXERCISES Sep 17, 2016 IMMUNIZATIONS No Known Immunizations
--- OUTSIDE RECORDS SUMMARY | 2018-03-14 14:14 | XMS REPORT ---
Author Author HEIDIPRIYANKACK Organization [facility] Address [address] [place] [address] Care Team Providers Care Medical Billing And Coding Instructor Name Role Phone GORDONCK Allen Unavailable PROBLEMS Type Condition ICD9-CM Code [id number] Code Onset Dates Condition Status SNOMED Code Problem Depression F32.9 Active 21159693 Problem Dietary counseling Z71.3 Active 916475219 Problem Exercise counseling Z71.89 Active 307671523 Problem Back pain of lumbosacaral region with sciatica M54.40 Active 028822558 Problem Hypercholesteremia E78.0 Active 97429011 Problem Tobacco abuse Z72.0 Active 48127619 Problem Morbid obesity E66.01 Active 427976315 Problem Metabolic syndrome E88.81 Active 54701302 Problem Tobacco abuse counseling Z71.6 Active 211342060 Problem Central stenosis of spinal canal M48.00 Active 55191883 Problem Chronic kidney disease (CKD) stage G3a/A1, moderately decreased glomerular filtration rate (GFR) between 45-59 mL/min/1.73 square meter and albuminuria creatinine ratio less than 30 mg/g N18.3 Active 129832323 Problem 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 Active 879432979505 Problem Abnormal CBC R79.89 Active 485387079 Problem Hypertension I10 Active 49046228 Problem Elevated TSH R94.6 Active 894624615 Problem COPD (chronic obstructive pulmonary disease) J44.9 Active 35335952 ALLERGIES No Information ENCOUNTERS Encounter Location Date Diagnosis [facility] [address] [facility] [id number] [address] Dec, Acute nasopharyngitis J00 ; BMI 50.0-59.9, adult Z68.[address] [facility] [address] [facility] [id number], [place] [address] Nov, COPD (chronic obstructive pulmonary disease) J44.[address] [place] [id number] [place] [address] Nov, Abnormal complete blood count R79.[address] [address] Oct, COPD (chronic obstructive pulmonary disease) J44.9 ; Hypertension I10 ; Hypercholesteremia E78.0 and Tobacco abuse counseling Z71.[address] [address] Oct, COPD (chronic obstructive pulmonary disease) J44.9 ; Hypertension I10 ; Morbid obesity E66.01 ; Metabolic syndrome E88.81 ; Hypercholesteremia E78.0 ; Central stenosis of spinal canal M48.00 ; 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 ; Tobacco abuse Z72.0 ; Tobacco abuse counseling Z71.6 ; Depression F32.9 ; Dietary counseling Z71.3 ; Exercise counseling Z71.89 and Encounter for immunization Z23 [address] [address] Oct, COPD (chronic obstructive pulmonary disease) J44.[address] [address] Jul, Hypertension I10 ; 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 ; COPD (chronic obstructive pulmonary disease) J44.9 ; Elevated serum creatinine R79.89 ; Acute serous otitis media of left ear, recurrence not specified H65.02 ; Acute otitis externa of left ear, unspecified type H60.502 and Dizziness R42 [place] [id number] [place] [address] May, Back pain of lumbosacaral region with sciatica M54.40 ; Central stenosis of spinal canal M48.00 and Morbid obesity E66.01 [place] [id number] [place] [address] Mar, Hypertension I10 [address] [address] Mar, Metabolic syndrome E88.81 ; Hypertension I10 ; COPD ( chronic obstructive pulmonary disease) J44.9 ; Morbid obesity E66.01 ; Depression F32.9 ; Dietary counseling Z71.3 ; Exercise counseling Z71.89 ; Tobacco abuse Z72.0 ; Tobacco abuse counseling Z71.6 ; Hypercholesteremia E78.0 and Central stenosis of spinal canal M48.00 [place] [address] [address] February, [place] [address] [address] Jan, Abnormal thyroid stimulating hormone (TSH) level R79.89 [place] [address] [address] Dec, Morbid obesity E66.01 ; Metabolic syndrome E88.81 ; COPD ( chronic obstructive pulmonary disease) J44.9 ; Hypercholesteremia E78.0 ; Back pain of lumbosacaral region with sciatica M54.40 and Hypertension I10 [place] [address] [address] Dec, Spinal stenosis, site unspecified M48.00 [place] [address] [address] Dec, Hypertension I10 ; Metabolic syndrome E88.81 and Hypercholesteremia E78.0 [place] [address] [place] [id number] [place] [address] Dec, Hypertension I10 ; Metabolic syndrome E88.81 and Hypercholesteremia E78.0 [place] [address] [place] [id number] [place] [address] Dec, Back pain of lumbosacaral region with sciatica M54.40 [place] [address] [address] Nov, COPD (chronic obstructive pulmonary disease) J44.9 [place] [address] [place] [id number] Nov, [place] [address] [place] [id number] [place] [address] Nov, COPD (chronic obstructive pulmonary disease) J44.9 [facility] [address] [place] [id number] [place] [address] Nov, Hypertension I10 ; COPD (chronic obstructive pulmonary disease) J44.9 ; Depression F32.9 ; Morbid obesity E66.01 ; Metabolic syndrome E88.81 and Hypercholesteremia E78.0 [place] [address] [place] [id number] [place] [address] Nov, Impingement syndrome, shoulder, left M75.42 [place] [address] [place] [id number] [place] [address] Aug, Back pain of lumbosacaral region with sciatica M54.40 [place] [address] [place] [id number] [place] [address] Aug, Impingement syndrome, shoulder, left M75.42 [place] [address] [place] [id number] [place] [address] Aug, Morbid obesity E66.01 and Back pain of lumbosacaral region with sciatica M54.40 [place] [address] [place] [id number] [place] [address] Jun, Impingement syndrome, shoulder, left M75.42 [place] [address] [place] [id number] [place] [address] May, [place] [address] [place] [id number] [place] [address] May, [place] [address] [place] [id number] [place] [address] May, Impingement syndrome, shoulder, left M75.42 [place] [address] [place] [id number] [place] [address] Apr, Morbid obesity E66.01 ; Back pain of lumbosacaral region with sciatica M54.40 and On home oxygen therapy Z99.81 [place] [address] [address] Apr, [place] [address] [address] Apr, Encounter for wound re-check Z51.89 and Visit for wound care Z51.89 [facility] [address] [address] Apr, Dressing change or removal, nonsurgical wound Z48.00 [place] [address] [address] Apr, Abscess L02.91 and Acute left-sided low back pain with left- sided sciatica M54.[address] [address] Mar, Morbid obesity E66.01 and Acute pain of left shoulder M25.512 [place] [address] [address] February, Acute pain of left shoulder M25.512 [place] [address] [address] Jan, Depression F32.9 ; Morbid obesity E66.01 ; Metabolic syndrome E88.81 and Hypercholesteremia E78.0 [place] [address] [address] Dec, Hypertension I10 ; Morbid obesity E66.01 ; Family history of diabetes mellitus Z83.3 ; History of alcohol abuse Z87.898 and Tobacco abuse Z72.0 [place] [address] [place] [id number] [place] [address] Dec, [place] [address] [address] Dec, Morbid obesity E66.01 ; Hypertension I10 ; Family history of cancer Z80.9 and Family history of diabetes mellitus Z83.3 [place] [address] [address] Nov, Morbid obesity E66.01 ; COPD (chronic obstructive pulmonary disease) J44.9 ; Hypertension I10 ; Depression F32.9 ; Family history of cancer Z80.9 ; Family history of diabetes mellitus Z83.3 ; Tobacco abuse Z72.0 ; Tobacco abuse counseling Z71.6 ; History of alcohol abuse Z87.898 ; Dietary counseling Z71.3 and Exercise counseling Z71.[address] [address] Sep, Hypertension I10 ; COPD (chronic obstructive pulmonary disease) J44.9 and Depression F32.[address] [address] Sep, [place] [address] [address] Sep, COPD (chronic obstructive pulmonary disease) J44.9 and Hypertension I10 [place] [address] [address] Aug, Shortness of breath R06.02 [place] [address] [address] Aug, [place] [address] [address] Aug, [place] [address] [address] Jul, [address] [address] Jul, [place] [address] [address] Jun, Routine adult health maintenance V70.0 and Shortness of breath on exertion 786.05 [facility] [address] [facility] [id number] [address] May, Elevated blood pressure reading without diagnosis of hypertension 796.2 and Shortness of breath on exertion 786.05 IMMUNIZATIONS No Known Immunizations SOCIAL HISTORY Never Assessed REASON FOR VISIT Repository Medication PLAN OF CARE VITAL SIGNS MEDICATIONS Medication Instructions Dosage Frequency Start Date End Date Duration Status Amlodipine Besylate 5 mg Orally Once a day 1 tablet 24h 30 days Active Lisinopril 40 mg Orally Once a day 1 tablet 24h 30 days Active RESULTS No Results PROCEDURES No [...]
--- OUTSIDE RECORDS SUMMARY | 2018-03-14 14:14 | XMS REPORT ---
Author Author CK GORDON Organization eClinicalWorks Address Unknown Phone Unavailable Care Team Providers Care Contract Preparer Name Role Phone KC GORDON CP Unavailable Allergies No Known Allergies [...] Start Date End Date Status Dosage Lisinopril [facility] [address]-06 40 mg Orally Once a day Oct 03, 2015 1 tablet Amlodipine Besylate [facility] 60775011158 5 MG Orally Once a day 1 tablet Results No Known Results Summary Purpose eClinicalWorks Submission
[2018-03-14] MEDS ORDERED: AMLO5TAB2 (14:40)
[2018-03-14] MEDS ORDERED: TIOT4MIS2 (14:40)
[2018-03-14] MEDS ORDERED: MONT10TA24 (14:40)
[2018-03-14] MEDS ORDERED: BUDE10.2 IH (14:40)
[2018-03-14] MEDS ORDERED: METF500T8 (14:40)
[2018-03-14 14:46] LABS: BASOPHILS % (AUTO) 0 % (0-10); EOSINOPHILS % (AUTO) 0 % (0-10); HEMATOCRIT 30 % (40-54); HEMOGLOBIN 9.3 G/DL (13.3-17.7); LYMPHOCYTES # (AUTO) 1.5 X 10^3 (1.0-4.0); LYMPHOCYTES % (AUTO) 3 % (12-44); MEAN CORPUSCULAR HEMOGLOBIN 24 PG (25-34); MEAN CORPUSCULAR HGB CONC 31 G/DL (32-36); MEAN CORPUSCULAR VOLUME 78 FL (80-99); MEAN PLATELET VOLUME 8.2 FL (7.4-10.4); MONOCYTES # (AUTO) 1.5 X 10^3 (0.0-1.0); MONOCYTES % (AUTO) 3 % (0-12); NEUTROPHILS # (AUTO) 47.8 X 10^3 (1.8-7.8); NEUTROPHILS % (AUTO) 94 % (42-75); PLATELET COUNT 807 10^3/uL (130-400); RED BLOOD COUNT 3.83 10^6/uL (4.35-5.85); RED CELL DISTRIBUTION WIDTH 17.3 % (10.0-14.5)
[2018-03-14 15:07] LABS: BAND NEUTROPHILS 25 %; BASOPHILS % (MANUAL) 0 %; BILIRUBIN,TOTAL 0.8 MG/DL (0.1-1.0); CALCIUM 9.1 MG/DL (8.5-10.1); CREATININE SERUM 3.25 MG/DL (0.60-1.30); EOSINOPHILS % (MANUAL) 0 %; LYMPHOCYTES % (MANUAL) 6 %; MONOCYTES % (MANUAL) 2 %; NEUTROPHILS % (MANUAL) 67 %; POTASSIUM 5.3 MMOL/L (3.6-5.0); RBC MORPH NORMAL; TOTAL PROTEIN 7.1 GM/DL (6.4-8.2)
--- NOTE | 2018-03-14 15:15 | Diagnostic Imaging Report ---
INDICATION: Fall, shortness of breath and weakness. Right shoulder pain. COMPARISON: 06/01/2015. FINDINGS: The heart size is normal. There is mild venous congestion. No pleural effusion or pneumothorax. The mediastinum is unremarkable. IMPRESSION: Mild central pulmonary venous congestion. Dictated by: Dictated on workstation # [id number]
--- NOTE | 2018-03-14 15:42 | ED General ---
General Chief Complaint: Respiratory Problems Stated Complaint: WEAKNESS, LUNG/R SHOULDER PAIN Nursing Triage Note: PT CO OF SOA, PT CO OF R SHOULDER PAIN, PT STATES FELL YESTERDAY D/T WEAKNESS. RATES SHOULDER PAIN 8/10 WHEN COUGHS. STATES HAS COPD X 4 YEARS AND WEARS O2 AT 4L AT HOME Nursing Sepsis Screen: No Definite Risk Source of Information: Patient History of Present Illness Date Seen by Provider: March 14, 2018 Time Seen by Provider: 15:36 Initial Comments The patient is a 47-year-old white male who presents today with complaints of shortness of breath, generalized weakness, and right shoulder pain. He is suffered no injury. He states that just a few days ago he had lab work done at [facility]. He has not heard about this yet. He states that in he has had difficulty walking for some time. He uses a pressure assist device at bedtime. He has been told that he has COPD. He also has difficulty with spinal stenosis. Over the last few days his ability to walk has been very limited. He has fallen. He feels very weak and unsteady on his feet. Timing/Duration: 6-7 Days Associated Systoms: Shortness of Air, Weakness Allergies and Home Medications Allergies Coded Allergies: No Known Drug Allergies (Unverified , 06/01/15) Home Medications Albuterol Sulfate 8.5 Gm Hfa.aer.ad, 2 PUFF IH Q4H USE WITH SPACER AT ALL TIMES Prescribed by: HIEN STEWART on 06/01/15 1325 Budesonide/Formoterol Fumarate 10.2 Gm Hfa.aer.ad, 2 PUFF IH BID, (Reported) Patient Home Medication List Home Medication List Reviewed: Yes Review of Systems Constitutional: see HPI EENTM: no symptoms reported Respiratory: dyspnea on exertion, orthopnea, short of breath Cardiovascular: no symptoms reported, other (right shoulder pain) Genitourinary: no symptoms reported Musculoskeletal: back pain Hematologic/Lymphatic: No Symptoms Reported Immunological/Allergic: no symptoms reported Past Xnjuijs-Ycasoi-Zystrk Hx Patient Social History Alcohol Use: Denies Use Recreational Drug Use: No Smoking Status: Current Everyday Smoker Type Used: Cigarettes Recent Foreign Travel: No Contact w/Someone Who Travel: No Recent Infectious Disease Expo: No Recent Hopitalizations: No Physical Abuse: No Sexual Abuse: No Past Medical History Surgeries: Yes (RU-EN-Y GASTRIC BYPASS/COMPLICATIONS & REPAIR OF LEAK 2000, HERNIA 2001) Abdominal Respiratory: No (DENIES BUT WAS ON VENT X 4 DAYS AFTER GASTRIC BYPASS SURGERY) COPD Cardiac: Yes Hypertension Neurological: No Genitourinary: No Gastrointestinal: Yes (S/P GASTRIC BYPASS) Abdominal Hernia Musculoskeletal: No Endocrine: Yes (MORBID OBESITY--PT STATES HE USED TO WEIGHT 600 LBS) Diabetes, Non-Insulin dep Cancer: No Psychosocial: No Nursing Suicide Risk Score: 0 Integumentary: No Blood Disorders: No Physical Exam Vital Signs Vital Signs - First Documented 03/14/18 14:20 Temp 97.5 Pulse 121 Resp 28 B/P (MAP) 112/97 (102) Pulse Ox 96 O2 Delivery Nasal Cannula O2 Flow Rate 4.00 Capillary Refill : Less Than 3 Seconds General Appearance: Moderate Distress Eyes: Bilateral Eye Normal Inspection HEENT: Normal ENT Inspection Neck: Full Range of Motion Respiratory: Decreased Breath Sounds (distant) Cardiovascular: Regular Rate, Rhythm, No Edema, No Gallop, No JVD, No Murmur, Normal Peripheral Pulses Gastrointestinal: Other (huge belly) Back: Normal Inspection Neurologic/Psychiatric: Alert, Oriented x3, No Motor/Sensory Deficits, Normal Mood/Affect, sr technical sales consultant II-XII Norm as Tested Skin: Normal Color, Warm/Dry Lymphatic: No Adenopathy Progress/Results/Core Measures Suspected Sepsis Recent Fever Within 48 Hours: No Infection Criteria Present: None New/Unexplained Altered Menta: No Sepsis Screen: No Definite Risk SIRS Temperature:97.5 Pulse: 121 Respiratory Rate: 28 Laboratory Tests 03/14/18 14:39: White Blood Count 51.0*H Blood Pressure 112 /97 Mean: 102 Laboratory Tests 03/14/18 14:39: Creatinine 3.25H, Platelet Count 807H, Total Bilirubin 0.8 Results/Orders Lab Results Laboratory Tests Test 03/14/18 14:39 Range/Units White Blood Count 51.0 *H 4.3-11.0 10^3/uL Red Blood Count 3.83 L 4.35-5.85 10^6/uL Hemoglobin 9.3 L 13.3-17.7 G/DL Hematocrit 30 L 40-54 % Mean Corpuscular Volume 78 L 80-99 FL Mean Corpuscular Hemoglobin 24 L 25-34 PG Mean Corpuscular Hemoglobin Concent 31 L 32-36 G/DL Red Cell Distribution Width 17.3 H 10.0-14.5 % Platelet Count 807 H 130-400 10^3/uL Mean Platelet Volume 8.2 7.4-10.4 FL Neutrophils (%) (Auto) 94 H 42-75 % Lymphocytes (%) (Auto) 3 L 12-44 % Monocytes (%) (Auto) 3 0-12 % Eosinophils (%) (Auto) 0 0-10 % Basophils (%) (Auto) 0 0-10 % Neutrophils # (Auto) 47.8 H 1.8-7.8 X 10^3 Lymphocytes # (Auto) 1.5 1.0-4.0 X 10^3 Monocytes # (Auto) 1.5 H 0.0-1.0 X 10^3 Eosinophils # (Auto) 0.0 0.0-0.3 10^3/uL Basophils # (Auto) 0.0 0.0-0.1 10^3/uL Neutrophils % (Manual) 67 % Lymphocytes % (Manual) 6 % Monocytes % (Manual) 2 % Eosinophils % (Manual) 0 % Basophils % (Manual) 0 % Band Neutrophils 25 % Blood Morphology Comment NORMAL Absolute Reticulocyte Count 70 24-90 10e9/L Percent Reticulocyte Count 1.82 0.50-2.40 % Sodium Level 125 *L 135-145 MMOL/L Potassium Level 5.3 H 3.6-5.0 MMOL/L Chloride Level 91 L 98-107 MMOL/L Carbon Dioxide Level 18 L 21-32 MMOL/L Anion Gap 16 H 5-14 MMOL/L Blood Urea Nitrogen 39 H 7-18 MG/DL Creatinine 3.25 H 0.60-1.30 MG/DL Estimat Glomerular Filtration Rate 21 BUN/Creatinine Ratio 12 Glucose Level 103 70-105 MG/DL Calcium Level 9.1 8.5-10.1 MG/DL Total Bilirubin 0.8 0.1-1.0 MG/DL Aspartate Amino Transf (AST/SGOT) 55 H 5-34 U/L Alanine Aminotransferase (ALT/SGPT) 35 0-55 U/L Alkaline Phosphatase 111 40-136 U/L Total Protein 7.1 6.4-8.2 GM/DL Albumin 3.0 L 3.2-4.5 GM/DL My Orders Orders - JORDAN CONTRERAS MD Chest 1 View, Ap/Pa Only (03/14/18 14:23) Cbc With Automated Diff (03/14/18 14:23) Comprehensive Metabolic Panel (03/14/18 14:23) Ekg Tracing (03/14/18 14:23) Manual Differential (03/14/18 14:39) Fentanyl Injection (Sublimaze Injection (03/14/18 16:00) Ns Iv 1000 Ml (Sodium Chloride 0.9%) (03/14/18 16:09) Reticulocyte Count (03/14/18 14:39) Medications Given in ED Current Medications Medications Dose Ordered Sig/Milena Route Start Time Stop Time Status Last Admin Dose Admin Fentanyl Citrate 50 mcg ONCE ONCE IVP 03/14/18 16:00 03/14/18 16:01 DC 03/14/18 15:59 50 MCG Sodium Chloride 1,000 ml @ STK-MED ONCE .ROUTE 03/14/18 16:09 03/14/18 16:15 DC 03/14/18 16:10 1,000 MLS/HR Vital Signs/I&O 03/14/18 14:20 Temp 97.5 Pulse 121 Resp 28 B/P (MAP) 112/97 (102) Pulse Ox 96 O2 Delivery Nasal Cannula O2 Flow Rate 4.00 Capillary Refill : Less Than 3 Seconds Blood Pressure Mean: 102 Departure Communication (Admissions) The CBC shows a white count of 51,000 with 94 percent granulocytes. There are 800,[address] Forte was asked to look at these smears. She reports that they are mature granulocytes. 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 His sodium is noted to be 125 and his creatinine 3.4. we have received laboratory values from blood drawn at [facility] on 03/11. The creatinine was 1.03 the sodium 131. The white blood count was 20,300, the platelet count 463,000, the percent neutrophils was 90 percent I had previously discussed the CBC with Dr. Forte who did a manual differential. She found the granulocytes to be basically all mature granulocytes. No immature forms were noted. I then discussed this with Dr. Kirk from hematology oncology. After complete consideration I discussed this with Dr. Melara and we elected to attempt transfer to [facility] for specialty services. I am currently awaiting callback from the transfer center. 1651 Impression Primary Impression: myelodysplasia Additional Impression: acute renal failure Disposition: 02 XFER SHT-TRM HOSP Condition: Stable/Unchanged Transfer Time Spoke to Accepting Phy: 16:45 Transfer Progress Notes Spoke to the transfer center at [facility]. After consideration he was approved for an admission to internal medicine. Dr. Alessandro Pate will be the attending physician. Because of the patient's size and previous experience with extreme discomfort with EMS. He will be taken by his brother in a pickup which will allow him to sit up. He will be taking his CPAP and oxygen with him. Departure-Patient Inst. Referrals: CK GORDON APRN (PCP) Primary Care Physician [facility]/ (Family) Primary Care Physician JORDAN CONTRERAS MD March 14, 2018 15:42
[2018-03-14] MEDS: fentaNYL INJECTION 100 MCG/2 ML AMP IVP ONE ×2 (15:59→18:30)
[2018-03-14] MEDS: NS IV 1000 ML 1,000 ML ONE (16:10)
[2018-03-14 16:39] LABS: ABSOLUTE RETIC # 70 10e9/L (24-90); RETICULOCYTE % 1.82 % (0.50-2.40)
[2018-03-14 18:23] VITALS: BP 112/97
== END 2018-03-14 18:32 | disposition short-term general hospital (02) ==
LOC: EDUNIT# 14:06 → ER 14:08
DX: D46.9 Myelodysplastic syndrome, unspecified (principal); N17.9 Acute kidney failure, unspecified; J44.9 Chronic obstructive pulmonary disease, unspecified; I10 Essential (primary) hypertension; E11.9 Type 2 diabetes mellitus without complications; E66.01 Morbid (severe) obesity due to excess calories; F17.210 Nicotine dependence, cigarettes, uncomplicated; Z98.84 Bariatric surgery status; Z87.19 Personal history of other diseases of the digestive system; Z79.51 Long term (current) use of inhaled steroids
CPT/HCPCS: 36415; 71045; 80053; 85007; 85027; 85045; 93005; 96361; 96374; 96376